=== PATIENT | female | born 1965 | race Caucasian/White ===

== ENCOUNTER 2020-12-14 13:37 | Outpatient (CLI) | payer OTHER, SELFPAY ==
--- NOTE | 2020-12-14 13:48 | ECG_ITS ---
Measurements Intervals [place] Rate: 64 P: 58 FL: 175 QRS: 48 QRSD: 89 T: 52 QT: 389 QTc: 403 Interpretive Statements SINUS RHYTHM NORMAL ECG Electronically Signed On 12-14-2020 14:08:47 CDT by Cristopher Monaco D.O.
== END 2020-12-14 13:38 | disposition home or self-care (01) ==
PROVIDERS: Visit Provider Surgery Plastic and Reconstructive Surgery
DX: Z41.1 Encounter for cosmetic surgery (principal)
CPT/HCPCS: 93005

== ENCOUNTER → 2020-12-24 00:32 | Outpatient (CLI) | payer OTHER, SELFPAY ==
[2020-12-24 23:32] LABS: SARS-CoV-2 RNA PCR Negative
== END ==
PROVIDERS: Visit Provider Surgery Plastic and Reconstructive Surgery
DX: Z01.812 Encounter for preprocedural laboratory examination (principal); Z20.822 Contact with and (suspected) exposure to COVID-19
CPT/HCPCS: C9803; U0003; U0005

== ENCOUNTER 2020-12-27 01:03 | Day surgery (SDC) | payer OTHER, SELFPAY ==
[2020-12-16 11:05] VITALS: BMI 31.7
[2020-12-27] VITALS (11 sets, daily range): BP systolic 104–153; BP diastolic 65–93; PULSE 71–80; RESP 10–14; TEMP 36.6–36.8; O2SAT 96–100
[2020-12-27] MEDS: LACTATED RINGERS 1,000 ML 30 ML IV CONT ×2 (06:48→10:14)
--- NOTE | 2020-12-27 06:50 | WPDANESEPPF ---
Anes - Initial Pre Proc Eval Procedure: Operation Date: 12/27/20 07:30 Proposed Procedures p Bilateral Breast Reduction - Quang Avila MD Date/Time: 12/27/20 06:50 Surgeon: Quang Avila MD Pre Op Diagnosis: macromastia Patient Data Age: 55 Gender: F Height: 1.61 m Weight: 82.55 kg Allergies Allergy/AdvReac Type Severity Reaction Status Date / Time aspirin Allergy Hives Verified 12/27/20 06:25 tetracycline Allergy Rash Verified 12/27/20 06:25 Home Medications Medication Instructions Recorded Confirmed Type fluoxetine 40 mg capsule 40 mg PO DAILY 09/21/20 12/27/20 History levothyroxine 137 mcg capsule 137 mcg PO DAILY 09/21/20 12/27/20 History omeprazole 20 mg capsule,delayed 20 mg PO DAILY 09/21/20 12/27/20 History release propranolol 20 mg tablet 20 mg PO Q12H 09/21/20 12/27/20 History rosuvastatin 10 mg tablet 10 mg PO DAILY 09/21/20 12/27/20 History valacyclovir 500 mg tablet 500 mg PO DAILY 09/21/20 12/27/20 History docusate sodium 100 mg capsule 100 mg PO DAILY #14 cap 12/14/20 12/16/20 Rx hydrocodone 5 mg-acetaminophen 325 1 tablet PO Q6H PRN #15 tablet 12/14/20 12/16/20 Rx mg tablet ondansetron HCl 4 mg tablet 4 mg PO Q8H #21 tablet 12/14/20 12/16/20 Rx Lactobacillus acidophilus 2,000 mmu cells PO DAILY 12/16/20 12/27/20 History [Acidophilus] albuterol 90 mcg INHALATION Q6H PRN 12/16/20 12/27/20 History cholecalciferol (vitamin D3) 125 mcg PO DAILY 12/16/20 12/27/20 History [Vitamin D3] fluticasone furoate-vilanterol 1 inh INHALATION DAILY 12/16/20 12/27/20 History [Breo Ellipta] Laboratory Tests 12/27/20 06:21 Cotinine Pending Patient hx anesthesia problems: none Family hx anesthesia problems: none PMFSH Past Medical History Medical History (Updated 12/26/20 @ 08:40 by Sam J. Luchtefeld, DO) Anxiety Asthma Diverticulitis GERD (gastroesophageal reflux disease) Hypertension Hypothyroidism Migraine Surgical History Surgical History History of cholecystectomy History of LAVH Family History Family History Father Heart disease Mother Asthma Acute Crohn's disease Social History Social History Smoking status: Never smoker Alcohol intake: never Substance use: never Substance use type: does not use Living arrangements: with family Spiritual care concerns: No Anes - Eval Final PreProcedure Day of Procedure 12/27/20 06:50 Patient weight: obese Heart: regular rate and rhythm Lungs: clear to auscultation and normal air movement Airway: Mallampati scale class II Neurological: alert and oriented Last oral intake: >/= 8 hours ASA classification: III Emergent: no Anesthetic plan: proceed Anesthesia type and monitoring: general ETT and standard monitoring Informed Consent: The patient's anesthetic plan and its attendant risks and benefits were discussed with the patient/family/POA. Questions were solicited and answers provided to the satisfaction of the patient/family/POA.
[2020-12-27 06:57] LABS: Urine Cotinine NEGATIVE
--- NOTE | 2020-12-27 06:57 | WPDHPUPDATE1 ---
History and Physical Update Update Date/Time: 12/27/20 06:57 History and Physical has been reviewed, including an updated exam of the patient. There are NO changes in the patient's condition. Risks, benefits, and alternatives have been discussed and questions answered. Patient agrees to proceed with procedure.
--- NOTE | 2020-12-27 07:13 | PM.PROC ---
Procedure Note - Detailed Date of procedure: 12/27/20 Pre-op diagnosis: macromastia Post-op diagnosis: same Procedure performed: Bilateral Reduction Mammaplasty Description of procedure: She is here today for bilateral breast reduction. Previously and again today the risks, benefits, alternatives were discussed in extensive detail. I wanted her to be very realistic about the risks involved as well as expectations. We discussed aftercare and what to monitor for. She understands we can never guarantee final breast size and there will always be asymmetry. I was very upfront and honest about the risks of sensation change and even nipple loss (). Made sure answered all of her questions to her satisfaction today and consent was obtained. She was marked in the preoperative holding area with their verification. The patient was taken to the operating room placed supine on the operating table. Anesthesia was provided by anesthesiology. She was prepped and draped in a standard sterile fashion. A surgical time-out was taken. Stab incisions were made and I tumessed with a tumescent solution. I marked out the nipple-areolar complex at 42 mm. I then de-epithelialized the pedicle. The pedicle was well left well more than 2 cm in thickness. I then removed the inferior portion of the breast as well as the central keel to get shape based on preoperative planning. At this point copiously irrigated with saline solution and verified a strict hemostasis. I reapproximated the pillars using a 2-0 PDS as well as along the IMF. I tailor tacked the breast into place with thor. She was placed in a sitting position. I verified the nipple-areolar complex position based on preoperative markings, intraoperative measurements, and observation which were in full agreement. This nipple-areolar complex was marked at 42 mm in size. I then placed supine and de-epithelialized this. Nipple-areolar complex was inset with 3-0 Monocryl. I closed the vertical incision with 3-0 Monocryl in the IMF with 3-0 stratafix. Then everything was closed using a running subcuticular 4-0 Monocryl followed by Steri-Strips. A dressing was placed followed by surgical bra. Patient was awoke and taken to PACU without difficulty. All instrument sponge counts were correct at the end of the case. Anesthesia: GLMA Surgeon: Quang Avila MD Estimated blood loss (mL): 30 Drains: No Packing: No Pathology: yes (Bilateral breast tissue) Complications: No immediate complications Condition: stable Disposition: PACU Findings: Inverted T Superior medial pedicle Tissue removed Right - 648 grams Left - 642 grams
[2020-12-27] MEDS: FAMOTIDINE 20 MG/2 ML VIAL IV PUSH (07:21)
[2020-12-27] MEDS: SCOPOLAMINE 1.5 MG PATCH TRANSDERM (07:21)
[2020-12-27] MEDS: ceFAZolin 2 GM/D5W 50 ML 2 GM/50 ML BAG IVPB (07:26)
[2020-12-27] MEDS: LACTATED RINGERS IRRIG 1,000 ML, LIDOCAINE HCL 1% LOCAL INJ 50 ML, EPINEPHrine HCL INJ ... INFILTRATE (07:26)
--- NOTE | 2020-12-27 09:57 | SUR.OPER ---
EBL:30cc
[2020-12-27] MEDS: oxyCODONE HCL (*CRX) 5 MG TAB IR PO (12:09)
== END 2020-12-27 12:40 | disposition home or self-care (01) ==
PROVIDERS: Visit Provider Surgery Plastic and Reconstructive Surgery
PROC: 0HBV0ZZ Excision of Bilateral Breast, Open Approach (ICD-10-PCS; CPT 19318; principal; 2020-12-27 07:30)
DX: N62 Hypertrophy of breast (principal); N60.32 Fibrosclerosis of left breast; N60.31 Fibrosclerosis of right breast; N60.42 Mammary duct ectasia of left breast; N60.82 Other benign mammary dysplasias of left breast; I10 Essential (primary) hypertension; J45.909 Unspecified asthma, uncomplicated; K21.9 Gastro-esophageal reflux disease without esophagitis; F41.9 Anxiety disorder, unspecified; Z79.51 Long term (current) use of inhaled steroids; Z79.899 Other long term (current) drug therapy; E66.9 Obesity, unspecified; Z68.32 Body mass index [BMI] 32.0-32.9, adult
CPT/HCPCS: 19318; 80307; 88305; A9270; J0171; J0330; J0690; J1100; J1200; J2250; J2405; J2704; J3010; J7120